=== PATIENT | male | born 1940 | race Two or more races ===

== ENCOUNTER 2025-05-22 10:00 | Inpatient (IN) | payer MEDICARE ==
[~2025-05-22] VITALS: Ht 172.7 cm; Wt 39.5 kg
[2025-05-22] MEDS: IV NS 0.9% 1,000 ML BAG IV ONE (10:35)
[2025-05-22 10:48] LABS: PLATELET COUNT (AUTO) 274 K/uL (150-450); RED BLOOD CELL COUNT(AUTO) 3.81 MIL/uL (4.5-6.0); RED CELL DISTRIBUTION WIDTH 14.4 % (11.5-15.0); WHITE BLOOD COUNT (AUTO) 7.2 K/uL (4.3-11.0)
[2025-05-22 11:00] LABS: CALCIUM, SERUM 8.8 mg/dL (8.5-10.1); CREATININE 0.9 mg/dL (0.6-1.3); SODIUM SERUM 136 mmol/L (136-145); UREA NITROGEN, BLOOD 28 mg/dL (7-18)
[2025-05-22 11:06] LABS: ASPARTATE AMINOTRANSFERASE 23 U/L (15-37); TOTAL PROTEIN, SERUM 6.8 g/dL (6.4-8.2)
[2025-05-22] MEDS ORDERED: SIMV-49 PO (11:53)
[2025-05-22] MEDS ORDERED: METO25TA6 PO (11:53)
[2025-05-22] MEDS ORDERED: QUET25TA PO (11:53)
[2025-05-22] MEDS ORDERED: IBUP-1955 PO (11:53)
[2025-05-22] MEDS ORDERED: ESCI10TA PO (11:53)
[2025-05-22] MEDS ORDERED: RIVA15TA PO (11:53)
[2025-05-22] MEDS ORDERED: ACETAMINOPHEN 325 MG TABLET PO PRN (12:00)
[2025-05-22] MEDS ORDERED: MAG HYDROX/AL HYDROX/SIMETH 30 ML UDC PO PRN (12:00)
[2025-05-22] MEDS ORDERED: Z GUARD REMEDY 4 OZ OINT TP PRN (12:00)
[2025-05-22] MEDS ORDERED: MAGNESIUM HYDROXIDE 30 ML UDC PO PRN (12:00)
[2025-05-22] MEDS ORDERED: ONDANSETRON HCL/PF 4 MG/2 ML VIAL IVP PRN (12:00)
[2025-05-22 16:13] VITALS: BP 187/77; TEMP 97.5; O2SAT 98
[2025-05-22] MEDS: IV D5/0.45 NACL 1,000 ML IV PRN (17:06)
[2025-05-22] MEDS: SUCRALFATE 1 G/10 ML UDC PO SCH (17:11)
[2025-05-22] MEDS: MEGESTROL ACETATE SUSP 400 MG/10 ML UDC PO SCH (17:11)
[2025-05-22] MEDS: RIVAROXABAN 15 MG TABLET PO SCH (17:22)
[2025-05-22] MEDS: METOPROLOL TARTRATE 25 MG TABLET PO SCH (17:22)
[2025-05-22 18:50] VITALS: BP 170/77
[2025-05-22 19:30] VITALS: BP 151/64
[2025-05-22 20:00] VITALS: BP 148/73; TEMP 97.7; O2SAT 100
[2025-05-22] MEDS: QUETIAPINE FUMARATE 25 MG TABLET PO SCH (21:06)
[2025-05-23] VITALS: BP 95/61; TEMP 97.5; O2SAT 97
[2025-05-23 04:00] VITALS: BP 132/68; TEMP 97.7; O2SAT 100
[2025-05-23 07:09] LABS: ASPARTATE AMINOTRANSFERASE 19.0 U/L (15-37); CALCIUM, SERUM 8.3 mg/dL (8.5-10.1); CREATININE 0.8 mg/dL (0.6-1.3); PHOSPHORUS 2.3 mg/dL (2.5-4.9); SODIUM SERUM 135.0 mmol/L (136-145); TOTAL PROTEIN, SERUM 6.2 g/dL (6.4-8.2); UREA NITROGEN, BLOOD 19.0 mg/dL (7-18)
[2025-05-23 07:12] LABS: PLATELET COUNT (AUTO) 264 K/uL (150-450); RED BLOOD CELL COUNT(AUTO) 3.60 MIL/uL (4.5-6.0); RED CELL DISTRIBUTION WIDTH 14.1 % (11.5-15.0); WHITE BLOOD COUNT (AUTO) 7.1 K/uL (4.3-11.0)
[2025-05-23 07:30] VITALS: BP 169/79; TEMP 97.7; O2SAT 100
[2025-05-23] MEDS: PANTOPRAZOLE 40 MG VIAL IV SCH (08:57)
[2025-05-23] MEDS: ESCITALOPRAM OXALATE (10 MG) 10 MG TABLET PO SCH (08:57)
[2025-05-23] MEDS ORDERED: SIMVASTATIN 20 MG TABLET PO SCH (09:00)
[2025-05-23] MEDS: POTASSIUM CHLORIDE 20 MEQ TAB.PRT.SR PO SCH (10:02)
[2025-05-23 14:25] LABS: HIV-1/2 ANTIBODY NON REACTIVE (NONREACTIVE)
[2025-05-23] MEDS: K PHOS NEUTRAL 250 MG TABLET PO ONE (15:34)
[2025-05-23 16:00] VITALS: BP 174/72; TEMP 97.3; O2SAT 100
[2025-05-23] MEDS: ENSURE ENLIVE 237 ML LIQUID (VANILLA) PO SCH (18:31)
[2025-05-23 20:00] VITALS: BP_SYST 114; BP_DIAS 58; BP_DIAS 68; TEMP 97.5; O2SAT 99
[2025-05-24 08:15] VITALS: BP 140/56; TEMP 97.7; O2SAT 96
[2025-05-24] MEDS: PANTOPRAZOLE 40 MG TABLET.DR PO SCH (08:34)
[2025-05-24 16:23] VITALS: BP 133/61; TEMP 97.5; O2SAT 98
[2025-05-24 20:00] VITALS: BP 158/53; TEMP 97.7; O2SAT 96
[2025-05-25 06:54] LABS: PLATELET COUNT (AUTO) 241 K/uL (150-450); RED BLOOD CELL COUNT(AUTO) 3.42 MIL/uL (4.5-6.0); RED CELL DISTRIBUTION WIDTH 14.1 % (11.5-15.0); WHITE BLOOD COUNT (AUTO) 5.5 K/uL (4.3-11.0)
[2025-05-25 06:56] LABS: CALCIUM, SERUM 8.7 mg/dL (8.5-10.1); CREATININE 0.8 mg/dL (0.6-1.3); SODIUM SERUM 139.0 mmol/L (136-145); UREA NITROGEN, BLOOD 16.0 mg/dL (7-18)
[2025-05-25 07:30] VITALS: BP 130/63; TEMP 97.3; O2SAT 100
[2025-05-25] MEDS: POTASSIUM CHLORIDE 20 MEQ TAB.PRT.SR PO ONE (11:34)
[2025-05-25] MEDS: SUCRALFATE 1 G/10 ML UDC PO SCH (11:51)
[2025-05-25] MEDS ORDERED: SUCRALFATE 1 G TABLET PO SCH (12:00)
[2025-05-25 16:00] VITALS: BP 129/65; TEMP 97.6; O2SAT 100
[2025-05-25 20:00] VITALS: BP 114/53; TEMP 98.7; O2SAT 99
[2025-05-26 07:00] VITALS: BP 127/59; TEMP 98.7; O2SAT 98
[2025-05-26 07:07] LABS: CALCIUM, SERUM 8.9 mg/dL (8.5-10.1); CREATININE 0.8 mg/dL (0.6-1.3); SODIUM SERUM 140.0 mmol/L (136-145); UREA NITROGEN, BLOOD 21.0 mg/dL (7-18)
[2025-05-26] MEDS: POLYETHYLENE GLYCOL 3350 17 GM POWD.PACK PO SCH (13:17)
[2025-05-26 16:00] VITALS: BP 108/50; TEMP 98.2; O2SAT 98
[2025-05-26 20:00] VITALS: BP 128/53; TEMP 98.1; O2SAT 98
[2025-05-27 07:30] VITALS: BP 124/60; TEMP 97.5; O2SAT 98
[2025-05-27] MEDS: DOCUSATE SODIUM 100 MG CAPSULE PO SCH (10:39)
[2025-05-27 16:00] VITALS: BP 123/56; TEMP 97.3; O2SAT 99
[2025-05-27 20:00] VITALS: BP 113/55; TEMP 97.7; O2SAT 99
[2025-05-28 07:30] VITALS: BP 124/60; TEMP 99.1; O2SAT 99
[2025-05-28 09:00] VITALS: BP 124/60
[2025-05-28] MEDS ORDERED: SUCR1ORA15 PO (11:32)
[2025-05-28] MEDS ORDERED: MEGE400O6 PO (11:32)
== END 2025-05-28 17:00 | DRG 391 ==
LOC: ER 10:05 → TELE 14:25 → MED 05-23 11:54
PROVIDERS: ADMIT Nurse Practitioner Acute Care; ATTEND Nurse Practitioner Acute Care
DX: K22.4 Dyskinesia of esophagus (principal); E43 Unspecified severe protein-calorie malnutrition; I48.20 Chronic atrial fibrillation, unspecified; R64 Cachexia; Z68.1 Body mass index [BMI] 19.9 or less, adult; K21.00 Gastro-esophageal reflux disease with esophagitis, without bleeding; E86.0 Dehydration; R62.7 Adult failure to thrive; I10 Essential (primary) hypertension; E78.5 Hyperlipidemia, unspecified; Z79.01 Long term (current) use of anticoagulants; Z79.899 Other long term (current) drug therapy; D64.9 Anemia, unspecified; K29.70 Gastritis, unspecified, without bleeding; Z74.09 Other reduced mobility; K59.00 Constipation, unspecified; N20.0 Calculus of kidney; R13.10 Dysphagia, unspecified
CPT/HCPCS: 36415; 71045-TC; 74230-TC; 80048-TC; 80053-TC; 80076-TC; 82962-TC; 83735-TC; 84100-TC; 84443-TC; 84484-TC; 85025-TC; 87806; 92526; 92611; 97112-TC; 97116-TC; 97530-TC; 97535-TC; G0378; J2470; J3490; J7030